=== PATIENT | female | born 1960 | race Caucasian/White ===

== ENCOUNTER 2018-10-20 22:12 | Inpatient (IN) ==
[2018-10-20] MEDS ORDERED: Aspirin 81 MG TAB.CHEW PO ONE (22:38)
[2018-10-20] MEDS ORDERED: *HR* Ticagrelor 90 MG TABLET PO ONE (22:38)
[2018-10-20] MEDS ORDERED: Aspirin 81 MG TAB.CHEW ONE (22:39)
[2018-10-20] MEDS ORDERED: *HR* Heparin 5,000 UNIT/ML VIAL ONE (22:39)
[2018-10-20] MEDS ORDERED: *HR* Ticagrelor 90 MG TABLET ONE (22:40)
[2018-10-20] MEDS ORDERED: 0.9 % Sodium Chloride 1,000 ML ONE ×3 (22:40→23:05)
[2018-10-20] MEDS ORDERED: *HR* Heparin 5,000 UNIT/ML VIAL IVP ONE (22:43)
--- NOTE | 2018-10-20 22:45 | Emergency Department Note ---
Disposition Clinical Impression: STEMI (ST elevation myocardial infarction) Qualifiers: Involved coronary artery: right coronary artery Qualified Code(s): I21.11 - ST elevation (STEMI) myocardial infarction involving right coronary artery Disposition: Admitted As Inpatient Time of Disposition: 23:00 General Adult HPI - General Chief complaint: ED Chest Pain Stated complaint: CP/LEFT SIDED ARM PAIN/N/V Time Seen by Provider: 10/20/18 22:22 Source: patient Limitations: no limitations Nursing Notes Reviewed: Yes Vital Signs Reviewed: Yes - History of Present Illness Pain Scale: 4 - Related Data Home Medications Medication Instructions Recorded Confirmed No Known Home Drugs 10/20/18 10/20/18 Allergies Allergy/AdvReac Type Severity Reaction Status Date / Time No Known Allergies Allergy Verified 10/20/18 22:40 Past Medical History - Past Medical History Medical history: Reports: no medical history Psychiatric history: Reports: no psych history - Social History Smoking Status: Former smoker Smokeless Tobacco Status: No Alcohol use: Reports: none Drug use: Reports: marijuana Physical Exam - General Limitations: no limitations General appearance: alert Course Vital Signs Temperature 97.9 F 10/20/18 22:18 Pulse Rate 87 10/20/18 22:18 Respiratory Rate 20 10/20/18 22:18 Blood Pressure 201/98 10/20/18 22:18 O2 Sat by Pulse Oximetry 99 10/20/18 22:18 Temperature 98.2 F 10/20/18 23:15 Pulse Rate 84 10/20/18 23:16 Respiratory Rate 20 10/20/18 23:16 Blood Pressure 183/94 10/20/18 23:16 O2 Sat by Pulse Oximetry 100 10/20/18 23:16 Oxygen Delivery Oxygen Delivery Nasal Cannula Medical Decision Making - Lab Data Result diagrams: 10/20/18 22:42 10/20/18 22:42 Lab Results 10/20/18 10/20/18 10/20/18 Range/Units 22:42 22:42 22:42 WBC 10.1 (4.3-11.1) K/mcL RBC 4.19 (3.82-4.97) M/mcL Hgb 13.1 (11.5-15.4) g/dL Hct 38.4 (35.3-44.9) % MCV 91.6 (83.0-100.0) fL MCH 31.3 (28.0-33.3) pg MCHC 34.1 (31.6-35.5) g/dL RDW 13.6 (11.5-14.5) % Plt Count 186 (140-400) K/mcL MPV 9.3 L (9.4-12.4) fL Immature Gran % 0.6 (0-4) % Seg Neutrophils % 73.6 % Lymphocytes % 20.2 % Monocytes % 4.7 % Eosinophils % 0.6 % Basophils % 0.3 % Neutrophils # 7.5 (1.6-8.9) K/mcL Lymphocytes # 2.0 (0.6-4.6) K/mcL Monocytes # 0.5 (0.0-1.3) K/mcL Eosinophils # 0.1 (0.0-0.6) K/mcL Basophils # 0.0 (0.0-0.2) K/mcL PT 10.8 (9.4-12.1) Seconds INR 1.0 APTT 30.8 (26.0-36.0) Seconds Sodium 137 (136-145) mEq/L Potassium 4.0 (3.5-5.1) mEq/L Chloride 105 (98-107) mEq/L Carbon Dioxide 21 L (23-29) mEq/L BUN 15 (6-20) mg/dL Creatinine 1.14 (0.60-1.20) mg/dL Est GFR ( Amer) 60 (> 60) Est GFR (Non-Af Amer) 49 L (> 60) BUN/Creatinine Ratio 13 (6-26) Glucose 178 H (70-105) mg/dL Calculated Osmolality 289 (280-300) Calcium 9.4 (8.6-10.3) mg/dL Magnesium 1.7 (1.6-2.6) mg/dL Troponin I 0.09 H* (< 0.04) ng/mL Critical Care Time Critical Care Time: Yes Total Critical Care Time: 30 Attestation: Critical care performed: Time is exclusive of separately billable procedures. Time includes: direct patient care, patient reassessment, coordination of patient care, interpretation of data (laboratory data, radiology data, and respiratory data), review of patient's medical records, medical consultation and documentation of patient care. Procedures included in critical care time: Procedures excluded from critical care time: Attestation Statement - Attestation Attestation: I examined this patient and my medical decision-making was reviewed with the Resident Physician. I agree with the documented findings, disposition and treatment plan as described except to the extent set forth below. Patient to the ED with chest pain. Left-sided nonradiating. Started at 6:30 tonight when she was in an argument with a coworker. No cardiac history. She has not seen a physician in 10 years. On exam she is tearful but in no distress. Heart regular rate and rhythm and lungs are clear. She is hypertensive with a systolic blood pressure of 200. Plan. Initial EKG shows ST elevation in the inferior leads with lateral ST depressions. This is consistent with an ST elevation GA. STEMI alert was called. Aspirin, heparin, belligerent or ordered. Case was discussed with on-call interventionalist. Patient to [facility].
--- NOTE | 2018-10-20 22:51 | Emergency Department Note ---
Disposition Clinical Impression: STEMI (ST elevation myocardial infarction) Qualifiers: Involved coronary artery: unspecified coronary artery Qualified Code(s): I21.3 - ST elevation (STEMI) myocardial infarction of unspecified site Disposition: Admitted As Inpatient Time of Disposition: 22:55 Chest Pain HPI - General Chief Complaint: ED Chest Pain Stated Complaint: CP/LEFT SIDED ARM PAIN/N/V Time Seen by Provider: 10/20/18 22:22 Source: patient Mode of arrival: ambulatory Limitations: no limitations Vital Signs Reviewed: Yes Nursing Notes Reviewed: Yes - History of Present Illness HPI Narrative: 58F with no significant PMHx presents to the emergency department with left- sided chest pain radiating down the left arm. Patient states this started approximately 6:30 after getting in an argument with one of her coworkers. She now describes it as a left-sided pressure and difficult in catching her breath. She has never had any chest pain like this before. She states she has not seen a doctor in 10-15 years. She does not take any medications on a daily basis. She is a daily smoker. Severity scale (1-10): 4 - Related Data Home Medications Medication Instructions Recorded Confirmed No Known Home Drugs 10/20/18 10/20/18 Allergies Allergy/AdvReac Type Severity Reaction Status Date / Time No Known Allergies Allergy Verified 10/20/18 22:40 All systems ED: reviewed and negative except as stated. Review of Systems: As Per HPI Constitutional: Denies: fever, chills, weakness Cardiovascular: Reports: chest pain, dyspnea on exertion. Denies: palpitations Respiratory: Reports: dyspnea. Denies: cough, wheezes Gastrointestinal: Denies: abdominal pain, nausea, vomiting, diarrhea Genitourinary: Denies: dysuria, hematuria Musculoskeletal: Denies: back pain, neck pain Integumentary: Denies: rash Neurological: Denies: headache Endocrine: Denies: fatigue Chest Pain PMH - Past Medical History Medical history: Reports: no medical history Psychiatric history: Reports: no psych history - Social History Smoking Status: Former smoker Alcohol use: Reports: none Drug use: Reports: marijuana Physical Exam - General Limitations: no limitations General appearance: alert, anxious, in distress (mild distress) - Head Head exam: atraumatic, normocephalic - Eye Eye exam: Present: normal appearance, PERRL, EOMI - ENT ENT exam: normal exam, normal oropharynx - Chest Chest inspection: Present: normal inspection. Absent: tenderness, rash - Respiratory Respiratory exam: Present: normal lung sounds bilaterally. Absent: wheezes - Cardiovascular Cardiovascular exam: Present: regular rate, normal rhythm - Abdominal Exam Abdominal exam: Present: soft, Non-Tender. Absent: distention, guarding, rebound, rigidity - Extremities Exam Extremities exam: Present: normal inspection. Absent: tenderness, pedal edema - Neurological Exam Neurological exam: Present: alert, oriented X3 - Psychiatric Psychiatric exam: Present: anxious - Skin Skin exam: Present: warm, dry, intact Course Vital Signs Temperature 97.9 F 10/20/18 22:18 Pulse Rate 87 10/20/18 22:18 Respiratory Rate 20 10/20/18 22:18 Blood Pressure 201/98 10/20/18 22:18 O2 Sat by Pulse Oximetry 99 10/20/18 22:18 Temperature 97.9 F 10/20/18 22:28 Pulse Rate 87 10/20/18 22:28 Respiratory Rate 20 10/20/18 22:28 Blood Pressure 201/98 10/20/18 22:28 O2 Sat by Pulse Oximetry 99 10/20/18 22:28 Oxygen Delivery Oxygen Delivery Room Air Chest Pain - MDM Narrative Medical decision making narrative: Patient presents with left-sided chest pain radiating down her left arm. Cardiac workup was ordered for the patient. EKG was obtained at 2230 and at 1 a STEMI alert was called. Spoke with Dr. Charlton at 2233 who is made aware of this patient and will be taking the patient to [facility]. Aspirin, [place] and heparin have been ordered for this patient. Labs were already drawn and are pending at this time. Patient will be transported to the catheter lab in hemodynamically stable condition. - Medical Records Medical records reviewed: Yes I reviewed the patient's medical records. - Lab Data Lab results reviewed: Yes I reviewed the patient's lab results. - EKG Data EKG attestation: Yes I reviewed and interpreted this EKG. EKG results narrative: EKG obtained at 2230 on 10/20/2018 Heart rate 81 beats or minute, AK interval 179, QRS duration 97, QT 368, QTC 428 Sinus rhythm with acute inferior wall ST segment elevation. ST segment depressions in leads 1, aVL, V5 and V6. No old EKG for comparison at this time.
[2018-10-20 22:57] LABS: Basophils % 0.3 %; Eosinophils # 0.1 K/mcL (0.0-0.6); Eosinophils % 0.6 %; Hematocrit 38.4 % (35.3-44.9); Hemoglobin 13.1 g/dL (11.5-15.4); Immature Granulocytes % 0.6 % (0-4); Lymphocytes % 20.2 %; Mean Corpuscular HGB Conc 34.1 g/dL (31.6-35.5); Mean Corpuscular Hemoglobin 31.3 pg (28.0-33.3); Mean Corpuscular Volume 91.6 fL (83.0-100.0); Mean Platelet Volume 9.3 fL (9.4-12.4); Monocytes # 0.5 K/mcL (0.0-1.3); Monocytes % 4.7 %; Neutrophils # 7.5 K/mcL (1.6-8.9); Platelet Count 186 K/mcL (140-400); Red Blood Count 4.19 M/mcL (3.82-4.97); Red Cell Distribution Width 13.6 % (11.5-14.5); Segmented Neutrophils % 73.6 %; White Blood Count 10.1 K/mcL (4.3-11.1)
[2018-10-20] MEDS ORDERED: *HR* Heparin 10,000 UNIT/10 ML VIAL ONE (23:02)
[2018-10-20] MEDS ORDERED: Nitroglycerin 1,000 MCG/10 ML VIAL IV ONE (23:02)
[2018-10-20] MEDS ORDERED: Heparin 1,000 UNITS/500 mL 500 ML ONE (23:02)
[2018-10-20] MEDS ORDERED: Iopamidol 125 ML INFUS..BTL ONE (23:05)
[2018-10-20 23:15] LABS: Calcium 9.4 mg/dL (8.6-10.3); Magnesium 1.7 mg/dL (1.6-2.6)
--- NOTE | 2018-10-20 23:15 | Cardiology History & Physical ---
Date of Encounter: 10/20/18 Time of Encounter: 23:13 Assessment and Plan (1) STEMI (ST elevation myocardial infarction) Current Visit: Yes Status: Acute The assessment and plan as outlined above was discussed with the patient and/or family members who expressed understanding and agreement. All questions were answered. 58-year-old female with inferior ST elevation myocardial infarction on EKG and concerning chest pain associated starting at 6 PM ongoing currently at 4 out of 10. Risks benefits and alternatives of a LHC were discussed with the patient and she agrees to proceed. Full H&P was difficult to obtain due to the emergent nature of presentation and emergent need for LHC Qualifiers: Involved coronary artery: right coronary artery Qualified Code(s): I21.11 - ST elevation (STEMI) myocardial infarction involving right coronary artery History of Present Illness Chief complaint: chest pain HPI: Ms. Sanford is a 58 year old female no significant past history active smoker presents to the emergency department with left pectoral type chest pain radiated down her left upper extremity started approximately 6 PM at 9 out of 10 intensity currently 4 out of 10 on arrival to the emergency department. EKG shows inferior ST elevations concerning for a myocardial infarction. Patient was administered ACS medications in the emergency department. Risks benefits and alternatives of and LHC was discussed with the patient she agrees to proceed Past Med Surg Social Fam HX - Past Medical History Medical history: no medical history Psychiatric history: no psych history - Past Surgical History Additional surgical history: cyst removal at 24 - Social History Smoking Status: Former smoker Smokeless Tobacco Status: No Alcohol use: none Drug use: marijuana Medications and Allergies No Known Home Drugs 10/20/18 [History] Allergy/AdvReac Type Severity Reaction Status Date / Time No Known Allergies Allergy Verified 10/20/18 22:40 All Systems Review: The remainder of the systems were reviewed and are negative Physical Examination Vital Signs, Last 4 Hours Temp Pulse Resp BP Pulse Ox 10/20/18 23:11 79 18 183/94 100 10/20/18 23:09 98.1 F 82 18 189/96 99 10/20/18 23:00 83 24 203/99 100 10/20/18 22:58 84 20 201/91 100 10/20/18 22:40 85 24 205/90 100 10/20/18 22:28 97.9 F 87 20 201/98 99 10/20/18 22:18 97.9 F 87 20 201/98 99 General: Conversant, No Apparent Distress HEENT: Atraumatic, Normocephaly, Mucus Membranes Moist Neck: No JVD, Normal carotid pulses Cardiac: Reg Rate and Rhythm, Normal S1 and S2, No Murmur Lungs: Normal Breath Sounds, No Wheeze, Rales, Rhonchi Neuro: Alert and responsive, No focal deficits noted Abdomen: Soft, Non-Tender Skin: No rashes noted on visualized skin Musculoskeletal: No Chest Wall Tenderness Extremities: No Clubbing, No Cyanosis, No Edema, Normal Pulses Results 10/20/18 22:42 Lab Results 10/20/18 22:42 WBC 10.1 Hgb 13.1 Hct 38.4 Plt Count 186
[2018-10-20 23:19] LABS: Prothrombin Time 10.8 Seconds (9.4-12.1)
[2018-10-20 23:22] LABS: Activated Partial Thrombo Time 30.8 Seconds (26.0-36.0)
[2018-10-20 23:23] LABS: Troponin I 0.09 ng/mL (< 0.04)
--- NOTE | 2018-10-20 23:23 | Pre-Sedation Evaluation ---
Pre-sedation evaluation - Pre-sedation checklist Date of procedure: 10/20/18 Procedure: LHC Recent Vitals: Last Vital Signs Temp 98.2 F 10/20/18 23:15 Pulse 84 10/20/18 23:16 Resp 20 10/20/18 23:16 BP 183/94 10/20/18 23:16 Pulse Ox 100 10/20/18 23:16 ASA Classification *see protocol: CLASS II-Mild systemic disease Cardiac Registry (Cardio Only) - Functional Capacity Functional Capacity: < 4 METS - Clincal Frailty Scale Clinical Frailty Scale: Vulnerable
[2018-10-20] MEDS ORDERED: *HR* FentaNYL (PF) 100 MCG/2 ML VIAL ONE (23:24)
[2018-10-20] MEDS ORDERED: *HR* Midazolam HCl 2 MG/2 ML VIAL ONE (23:24)
[2018-10-20] MEDS ORDERED: Tirofiban 12.5 MG/250ML 12.5 MG/250 ML BAG ONE (23:25)
[2018-10-21] MEDS ORDERED: Ondansetron 4 MG/2 ML VIAL ONE (00:09)
[2018-10-21] MEDS ORDERED: Iopamidol 125 ML INFUS..BTL ONE (00:14)
[2018-10-21] MEDS ORDERED: 0.9 % Sodium Chloride 1,000 ML ONE (00:19)
[2018-10-21] MEDS ORDERED: Tirofiban 12.5 MG/250ML 12.5 MG/250 ML BAG IVC SCH (00:45)
[2018-10-21] MEDS ORDERED: *HR* Atropine Sulfate 1 MG/10 ML SYRINGE ONE (00:52)
--- NOTE | 2018-10-21 00:54 | Invasive Diagnostic Lab Proc ---
Name: Alesisa Sanford Date of Study: 10/20/2018 Date: 1960 Ht: 68.1in Medical Record#: [id number] Age: 58 Wt: 171.96lb Gender: Female BSA: 1.92 Order #: [id number] BMI: 26.06 Physicians Procedure Physician: Holly Charlton MD Referring MD: Referring MD: Staff Name Position Time In SuebookerYasmin veliz RN Monitor 11:02 PM Eliane Martinez RN Condominium Association Manager 11:03 PM Jumaan Oates RT (R) Scrub 11:03 PM Procedures Performed Procedure L HRT ARTERY/VENTRICLE ANGIO PRQ CARD REVASC NC 1 VSL Pre-Procedure Checklist Pt not NPO for procedure and MD aware. Plan of Care Patient will tolerate the procedure without complications. Adequate level of comfort will be maintained. Hemodynamics will remain stable Patient will recover from procedure without complications. Respiratory function will be maintained. Cardiac rhythm will remain stable. Patient temperature will be maintained. Patient and/or family have verbalized understanding of the procedure. Patient Education Intravenous Access Time IV Size Location DC'd Fluid/Drip Rate Units RN 11:02 PM 20g 1 1/4" Patent On Arrival Rt Antecubital 11:02 PM 20g 1 1/4" Patent On Arrival Lt Arm Allergies No Known Allergies Vital Signs Time BP (mmHg) HR (bpm) O2 Sat. RR (bpm) LOC 11:26 PM / % 5 = Fully awake and oriented or at pre-proc level 11:26 PM / % 4 = Oriented but drowsy 11:41 PM / % 4 = Oriented but drowsy 11:56 PM / % 4 = Oriented but drowsy 12:11 AM / % 4 = Oriented but drowsy 11:25 PM 198 / 108 151 100 % 18 11:29 PM 182 / 97 80 100 % 15 11:34 PM 184 / 89 77 100 % 14 11:39 PM 185 / 91 83 100 % 10 11:44 PM 177 / 97 88 100 % 20 11:49 PM 181 / 95 78 100 % 12 11:54 PM 175 / 92 82 100 % 19 11:59 PM 175 / 94 81 100 % 12 12:04 AM 100 / 56 60 100 % 13 12:13 AM 171 / 79 98 99 % 14 12:17 AM 104 / 60 83 97 % 14 12:19 AM 98 / 57 78 98 % 15 12:22 AM 99 / 60 78 100 % 11 12:27 AM 100 / 53 74 99 % 13 12:32 AM 90 / 53 77 100 % 12 12:37 AM 97 / 59 81 96 % 20 Procedural Medications Time Medication Dose Units Method Given By 11:26 PM Oxygen 2 L/min nasal cannula Eliane Martinez RN 11:26 PM Versed 1 mg Intravenous Rockfish, Eliane MCBRIDE 11:26 PM Fentanyl 25 mcg Intravenous Rockfish, Eliane MCBRIDE 11:27 PM Lidocaine 2% 20 ml Subcutaneous Holly Charlton MD 11:33 PM Aggrastat Bolus: 37.5 ml Intravenous Juan, Eliane MCBRIDE 11:33 PM Aggrastat 12.5mg/250ml 13.5 ml/hr Intravenous Rockfish, Eliane MCBRIDE 11:38 PM Versed 0.5 mg Intravenous Juan, Eliane MCBRIDE 11:38 PM Fentanyl 25 mcg Intravenous Juan, Eliane MCBRIDE 12:01 AM Atropine 0.25 mg Intravenous Rockfish, Eliane MCBRIDE 12:04 AM Atropine 0.25 mg Intravenous Juan, Eliane MCBRIDE 12:05 AM Epinephrine 0.25 mg Intravenous Juan, Eliane MCBRIDE 12:10 AM Zofran 4 mg Intravenous Juan, Eliane MCBRIDE 12:27 AM Nitroglycerin 50 mcg Intracoronary Holly Charlton MD 12:35 AM Heparin 1500 units Intravenous Juan, Eliane MCBRIDE Saqib Score Preprocedure Postprocedure Activity 2- Moves 4 extremities sustained head lift Activity 2- Moves 4 extremities sustained head lift Circulation 2- SBP +/= 20 points of pre-anesthetic level Circulation 2- SBP +/= 20 points of pre-anesthetic level Consciousness 2- Awake and alert oriented x 3 Consciousness 2- Awake and alert oriented x 3 O2 Saturation 2- Able to maintain O2 satruation of 92% on room air O2 Saturation 2- Able to maintain O2 satruation of 92% on room air Respiratory 2- Able to deep breathe and cough well Respiratory 2- Able to deep breathe and cough well Total Score 10 Total Score 10 Contrast Agent: Isovue Diagnostic Contrast: 249 ml Total Contrast: 249 ml Fluoro Dose: 155 mGy Activated Clotting Time Time Seconds to Clot 12:35 AM 169 Procedure Log Time Note Enter By 11:03 PM Yasmin Murray RN Position: Monitor Time in: 23:02 evaristo 11:03 PM Eliane Martinez RN Position: Condominium Association Manager Time in: :[facility] 11: PM Jumana Oates RT (R) Position: Scrub Time in: :[facility] 11: PM Patient charges- Angio tray pack, Navilyst 3mm J, Pulse Oximetry and ACIST tubing and transducer 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 11: PM CathStat : PM Vitals capture started with the following parameters, Patient=Adult, Interval=5 min, Initial Cpdcploi=261 mmHg, Deflation Rate=3 mmHg, Cuff placed on Right Arm 11: PM Physician arrived 23:[facility] 11: PM NG=438 bpm, JQGT=551/108 mmhg, HiF5=826.0 %, Resp=18 B/min 11: PM Meet and greet completed [facility] : PM Sign in performed according to hospital policy. Informed consent was obtained. [facility] : PM Procedure start :[facility] : PM Hair removed from procedure site in procedure lab using clippers. Bilateral groin prepped with Chloraprep by Yasmin Murray RN, then patient was draped. Skin intact. [facility] PM Time: :25 Patient comfortable and pain free: Yes [facility] : PM Time: :26LOC: 5 = Fully awake and oriented or at pre-proc level [facility] PM Time: : Oxygen on at 2 L/min per nasal cannula by Eliane Martinez RN maeve PM Time: : Versed 1 mg Intravenous Given by Eliane Martinez RN PM Time: : Fentanyl 25 mcg Intravenous Given by Eliane Martinez RN : PM Time out was performed according to hospital policy. Conscious sedation and anesthesia was achieved (see medication log with in this report above) [facility] : PM Time: :27 20 ml Lidocaine 2% to right groin Subcutaneous Given by Holly Charlton MD maeve : PM Micro-Introducer Kit utilized for sheath placement [facility] 11:28 PM Pressure channel 1 zero failed. 11:28 PM Recorded ECG: HR=80 Condition=Condition 1 11:29 PM HR=80 bpm, WEKP=529/97 mmhg, BmL5=937.0 %, Resp=15 B/min 11:30 PM Pressure channel 1 zeroed. 11:30 PM Access obtained by percutaneous puncture. 6Fr 10cm Terumo [place] sheath placed in right Femoral artery. [id number] tsoummers 11:31 PM Inflation device was opened. tsoummers 11:31 PM 6Fr JR 4 Runway guide catheter was used to cannulate the PCI vessel successfully. reused? No tsoummers 11:32 PM RCA angiography performed in multiple views. tsoummers 11:33 PM Recorded Pressure: Ao, HR=92, Condition=Condition 1 (Aorta) Ao 190/94/134 11:33 PM .014 [employer] [place] 190cm guide wire across target lesion- unsuccessful. reused? No tsoummers 11:33 PM Time: 23:33 Aggrastat Bolus: 37.5 ml Intravenous Given by Eliane Martinez RN Post pump [facility] 11:33 PM Time: 23:33 Aggrastat 12.5mg/250ml 13.5 ml/hr Intravenous Given by Eliane Martinez RN Post pump [facility] 11:34 PM Lesion found in Mid RCA. Pre Stenosis: 100 Pre PELON Flow: 0: No Flow/No perfusion tsoummers 11:34 PM Right Coronary, Right Posterior Descending Arteries with Right Posterolateral and Acute Marginal branches with 100 % stenosis. If graft is supplying this area, 0 % stenosis tsmmers 11:34 PM Recorded Pressure: Ao, HR=77, Condition=Condition 1 (Aorta) Ao 162/74/110 11:34 PM HR=77 bpm, WFQO=992/89 mmhg, KkT4=668.0 %, Resp=14 B/min 11:37 PM Recorded Pressure: Ao, HR=86, Condition=Condition 1 (Aorta) Ao 188/89/131 11:38 PM Time: 23:38 Versed 0.5 mg Intravenous Given by Eliane Martinez RN 11:38 PM Time: 23:38 Fentanyl 25 mcg Intravenous Given by Eliane Martinez RN 11:39 PM HR=83 bpm, URNH=389/91 mmhg, KgH0=298.0 %, Resp=10 B/min 11:40 PM 2.0 mm x 20 mm Emerge Monorail balloon across target lesion- successful. reused? No tsoummers 11:41 PM Time: 23:26LOC: 4 = Oriented but drowsy tsoummers 11:41 PM Time: 23:26 Patient comfortable and pain free: Yes tsoummers 11:44 PM Balloon catheter removed intact. Did not inflate tsoummers 11:44 PM HR=88 bpm, CRMA=324/97 mmhg, RuK6=036.0 %, Resp=20 B/min 11:44 PM Guide wire removed intact. tsoummers 11:45 PM .014 [employer] 50 190cm guide wire across target lesion- successful. reused? No tsoummers 11:49 PM HR=78 bpm, EXQT=069/95 mmhg, OdD2=730.0 %, Resp=12 B/min 11:51 PM Guide wire removed intact. tsoummers 11:51 PM Guide catheter removed intact. tsoummers 11:51 PM 5Fr FL 4 catheter inserted over the wire [facility] tsoummers 11:52 PM LCA angiography performed in multiple views. tsoummers 11:53 PM Recorded Pressure: Ao, HR=82, Condition=Condition 1 (Aorta) Ao 160/85/118 11:54 PM Catheter removed tsoummers 11:54 PM HR=82 bpm, NQVX=067/92 mmhg, CcX5=803.0 %, Resp=19 B/min 11:55 PM JR4 guide reinserted tsoummers 11:56 PM Time: 23:41 Patient comfortable and pain free: Yes tsoummers 11:56 PM Time: 23:41LOC: 4 = Oriented but drowsy tsoummers 11:56 PM pilot50 wire reinserted tsoummers 11:57 PM 2.0x 20 mm balloon reinserted tsoummers 11:58 PM Balloon inflated @ 6 mylene for 9 seconds tsoummers 11:59 PM Balloon inflated @ 6 mylene for 5 seconds tsoummers 11:59 PM HR=81 bpm, DCYI=655/94 mmhg, LsP9=548.0 %, Resp=12 B/min 12:00 AM Recorded Pressure: Ao, HR=64, Condition=Condition 1 (Aorta) Ao 135/56/85 12:02 AM Time: 00:01 Atropine 0.25 mg Intravenous Given by Eliane Martinez RN 12:04 AM Time: 00:04 Atropine 0.25 mg Intravenous Given by Eliane Martinez RN 12:04 AM HR=60 bpm, XHCB=366/56 mmhg, SeN6=024.0 %, Resp=13 B/min 12:05 AM Recorded ECG: HR=78 Condition=Condition 1 12:06 AM Time: 00:05 Epinephrine 0.25 mg Intravenous Given by Eliane Martinez RN 12:07 AM Balloon inflated @ 6 mylene for 5 seconds tsoummkeren 12:07 AM Balloon inflated @ 6 mylene for 6 seconds tsoummkeren 12:07 AM Balloon inflated @ 6 mylene for 5 [facility] AM Balloon catheter removed intact. tsoummers 12:11 AM Time: 00:10 Zofran 4 mg Intravenous Given by Eliane Martinez RN 12:11 AM Vitals capture stopped. 12:11 AM Vitals capture started with the following parameters, Patient=Adult, Interval=5 min, Initial Xbngowze=719 mmHg, Deflation Rate=3 mmHg, Cuff placed on Right Arm 12:11 AM Time: 23:56LOC: 4 = [facility]ed but drowsy [facility] AM Time: 23:56 Patient comfortable and pain free: Yes tsoummers 12:11 AM Recorded ECG: VL=984 Condition=Condition 1 12:11 AM Recorded Pressure: Ao, BG=291, Condition=Condition 1 (Aorta) Ao 175/88/126 12:13 AM HR=98 bpm, OYVJ=199/79 mmhg, SpO2=99.0 %, Resp=14 B/min 12:16 AM Guide wire removed intact. tsoummers 12:16 AM Guide catheter removed intact. tsoummers 12:16 AM 6Fr JR 4 SH Runway guide catheter was used to cannulate the PCI vessel successfully. reused? No tsoummers 12:16 AM pilot teacher 50 wire reinserted tsoummers 12:17 AM HR=83 bpm, WDXZ=677/60 mmhg, SpO2=97.0 %, Resp=14 B/min 12:18 AM NIBP STAT measurement started. 12:18 AM Recorded Pressure: Ao, HR=80, Condition=Condition 1 (Aorta) Ao 73/41/56 12:19 AM HR=78 bpm, NIBP=98/57 mmhg, SpO2=98.0 %, Resp=15 B/min 12:21 AM 2.25mm x 12mm Synergy drug-eluting stent across target lesion- successful Lot #[id number] tsoummers 12:22 AM HR=78 bpm, NIBP=99/60 mmhg, YoZ1=482.0 %, Resp=11 B/min 12:22 AM Stent deployed @ 9 mylene for 9 seconds tsoummers 12:23 AM Stent balloon reinflated @ 11 mylene for 9 seconds tsoummers 12:23 AM Stent balloon reinflated @ 6 mylene for 5 seconds tsoummers 12:23 AM Stent balloon reinflated @ 6 mylene for 4 seconds tsoummers 12:23 AM Stent delivery system removed intact. tsoummers 12:24 AM 2.25mm x 16mm Synergy drug-eluting stent across target lesion- successful Lot #[id number] tsoummers 12:25 AM Stent deployed @ 11 mylene for 12 seconds tsoummers 12:26 AM Stent balloon reinflated @ 16 mylene for 8 seconds tsoummers 12:26 AM Stent balloon reinflated @ 14 mylene for 5 seconds tsoummers 12:26 AM Time: 00:11 Patient comfortable and pain free: Yes tsoummers 12:26 AM Time: 00:11LOC: 4 = Oriented but drowsy tsoummers 12:26 AM Stent delivery system removed intact. tsoummers 12:27 AM HR=74 bpm, AMRB=950/53 mmhg, SpO2=99.0 %, Resp=13 B/min 12:27 AM Time: 00:27 Nitroglycerin 50 mcg Intracoronary Given by Holly Charlton MDkeren 12:28 AM Coronary Dominance: right tsoummers 12:30 AM Guide wire removed intact. tsoummers 12:30 AM Guide catheter removed intact. tsoummers 12:30 AM 5Fr Pigtail catheter inserted over the wire [facility] tsoummers 12:31 AM Catheter crossed the aortic valve and was selectively placed in the left ventricle. Pressures recorded on pullback for left heart catheterization. tsoummers 12:31 AM Bolus angiogram of left Ventricle complete: 10 ml/sec for a total of 20 mls tsoummers 12:32 AM Recorded Pressure: LV, HR=77, Condition=Condition 1 (Left Ventricle) LV 88/6/14 12:32 AM HR=77 bpm, NIBP=90/53 mmhg, SwT8=742.0 %, Resp=12 B/min 12:33 AM [facility]ter [facility] 12:33 AM Recorded Pressure: LV, Ao, HR=78, Condition=Condition 1 (Left Ventricle) LV 76/21/23, (Aorta) Ao 80/54/66 12:33 AM Bolus angiogram of right Femoral complete: 2 ml/sec for a total of [address] [facility] 12:34 AM Procedure completed at 00:34 10/21/2018 [facility] 12:34 AM Did you address PELON flow and Dominance? YesCoronary Dominance: right [facility] 12:35 AM Sign out completed: Radiation Dose 1128.71 mGy, 155 Gy/cm2 Fluoro Time: 28.7 Isovue 370 - 200ml contrast 249 ml given by Holly Charlton MD. Complications: None. 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 Sedation minutes 70. Cardiac Rehab Consult needed: Yes. Confirmed administered medications: Yes [facility] 12:35 AM Time: 00:35 Heparin 1500 units Intravenous Given by Eliane Martinez RN [facility] 12:35 AM At 00:35 the ACT was 169 seconds. [facility] 12:36 AM Estimated Blood Loss: less than 20cc [facility] 12:36 AM Post ECG NSR [facility] 12:37 AM Post Blood Pressure 90/[facility] 12:37 AM Information taught Cardiac Cath, PCI, and Angioseal [facility] 12:37 AM Education needs Procedure, Plan of Care, and Responsibilities of Patient in Care [facility] 12:37 AM Arterial sheath pulled, Angio-seal closure device used and was Successful [id number] S/N. [facility] 12:37 AM HR=81 bpm, NIBP=97/59 mmhg, SpO2=96.0 %, Resp=20 B/min 12:37 AM Education needs Procedure, Plan of Care, and Responsibilities of Patient in [facility] 12:37 AM Learning barriers :None [facility] 12:37 AM Education Methods Verbal [facility] 12:37 AM Education evaluation Able to repeat information [facility] 12:37 AM Site status No bleeding/ No Hematoma - Rt Groin as reported by Jumana Oates RT (R) at 00:37 tsoummers 12:[address] [facility] 12:37 AM Plavix, Effient or Brilinta given Yes in ED [employer] tsoummers 12:37 AM Family placed in consult room. tsoummers 12:45 AM Lesion found in Distal RCA. Pre Stenosis: 50 Pre PELON Flow: tsoummers 12:45 AM Lesion found in Distal LMCA. Pre Stenosis: 20 Pre PELON Flow: tsoummers 12:46 AM Lesion found in Mid LAD. Pre Stenosis: 60 Pre PELON Flow: tsoummers 12:46 AM Lesion found in Distal Circumflex. Pre Stenosis: 50 Pre PELON Flow: tsoummers 12:46 AM Lesion found in 1st Marginal. Pre Stenosis: 60 Pre PELON Flow: tsoummers 12:46 AM Left Main Coronary Artery with 20% stenosis tsoummers 12:46 AM Mid/Distal Left Anterior Descending Coronary Artery and diagonal branches with 60% stenosis. If graft is supplying this area, 0 % stenosis tsoummers 12:46 AM Circumflex, Obtuse Marginal, Left Posterior Descending, and Left Posterolateral Coronary Arteries with 50 % stenosis. If graft is supplying this area, 0 % stenosis tsmmers 12:46 AM Report given to Ruth MCBRIDE Pt taken to ICU Room #5. 00:46 tsoummers 12:46 AM Patient out of room: 00:46 [facility] Complications Complication None Hemodynamics Pressures Site Systolic/A Wave Diastolic/V Wave Mean AO 190 94 134 AO 162 74 110 AO 188 89 131 AO 160 85 118 AO 135 56 85 AO 175 88 126 AO 73 41 56 LV 88 6 14 LV 76 21 23 AO 80 54 66 Post Procedure Information Blood Pressure: 90/53 mmHg Rhythm: NSR Post procedural instructions were given Closure Device Time Device Success/Fail 10/21/2018 12:37:00 AM Angio-Seal VIP Successful Site Checks Time Location Status Staff Sheath In? Note 12:37 AM Rt Groin No bleeding/ No Hematoma Jumana Oates RT (R) Pulses Updated by Yasmin Murray RN on 10/21/2018 12:48:43 AM electronically signed on 10/21/2018 12:49:05 AM with status of Final
[2018-10-21 03:37] LABS: Basophils % 0.3 %; Eosinophils % 0.2 %; Hematocrit 37.4 % (35.3-44.9); Hemoglobin 12.5 g/dL (11.5-15.4); Immature Granulocytes % 0.4 % (0-4); Lymphocytes # 1.7 K/mcL (0.6-4.6); Lymphocytes % 16.3 %; Mean Corpuscular HGB Conc 33.4 g/dL (31.6-35.5); Mean Corpuscular Hemoglobin 30.7 pg (28.0-33.3); Mean Corpuscular Volume 91.9 fL (83.0-100.0); Mean Platelet Volume 9.9 fL (9.4-12.4); Monocytes # 0.4 K/mcL (0.0-1.3); Monocytes % 4.1 %; Neutrophils # 8.2 K/mcL (1.6-8.9); Platelet Count 208 K/mcL (140-400); Red Blood Count 4.07 M/mcL (3.82-4.97); Red Cell Distribution Width 13.7 % (11.5-14.5); Segmented Neutrophils % 78.7 %; White Blood Count 10.4 K/mcL (4.3-11.1)
[2018-10-21 03:52] LABS: BUN/Creatinine Ratio 14 (6-26); Blood Urea Nitrogen 14 mg/dL (6-20); Calcium 8.6 mg/dL (8.6-10.3); Carbon Dioxide 19 mEq/L (23-29); Chloride 107 mEq/L (98-107); Glucose 156 mg/dL (70-105); Osmolality,Calculated 286 (280-300); Potassium 4.2 mEq/L (3.5-5.1); Sodium 136 mEq/L (136-145); eGFR For African Americans > 60 (> 60); eGFR For Non-African Americans 57 (> 60)
[2018-10-21] MEDS ORDERED: *HR* EPINEPHrine 1 MG/10 ML SYRINGE IVP ONE (07:51)
[2018-10-21] MEDS: Aspirin 81 MG TAB.CHEW PO SCH (07:56)
[2018-10-21] MEDS: *HR* Ticagrelor 90 MG TABLET PO SCH ×2 (07:57→20:44)
--- NOTE | 2018-10-21 11:17 | Cardiology Progress Note ---
<Jacques Barrientos Mark - Last Filed: 10/21/18 12:18> Date of Encounter: 10/21/18 Time of Encounter: 11:15 Assessment and Plan (1) STEMI (ST elevation myocardial infarction) Current Visit: Yes Status: Acute 1. STEMI on EKG associated with chest pain last evening 05/23; Troponin 0.09. 2. S/P [facility] report pending; Denies chest pain, SOB, flank pain, n/t. 3. Right groin access site dressing removed. There is no hematoma present with minimal echymosis. Pt. education s/p procedure given and pt. understands. 4. On DAPT, Brilinta, ASA, continue. Will add statin. Will hold ACEI and BB at this time d/t hypotension; recommend add when able. H/H and renal fx stable. 5. Will order fasting lipids, LFTs. 6. Echo, EKG ordered. Will review and recommend further recs. 7. Will add troponin for tonight and a.m. to see trend for baseline further recs . 7. Discussed and reviewed with Dr. Charlton and the patient. Consider transfer to floor tomorrow. Qualifiers: Involved coronary artery: right coronary artery Qualified Code(s): I21.11 - ST elevation (STEMI) myocardial infarction involving right coronary artery Discussion w patient/family: The assessment and plan as outlined above was discussed with the patient and/or family members who expressed understanding and agreement. All questions were answered. Thank you for involving us in the care of your patient. Please call with any questions. Subjective Principal diagnosis: STEMI Interval history: Denies Chest pain, SOB at rest, flank pain or tenderness. Denies N/T lower extremities. Objective Vital Signs, Last 4 Hours Pulse Resp BP Pulse Ox 10/21/18 10:00 60 19 114/49 97 10/21/18 09:00 76 20 109/51 98 10/21/18 08:00 77 17 124/54 98 General: Conversant, No Apparent Distress HEENT: Atraumatic, Normocephaly, Mucus Membranes Moist Neck: No JVD, Normal carotid pulses Cardiac: Reg Rate and Rhythm, Normal S1 and S2, No Murmur Lungs: Normal Breath Sounds, Other (exp. wheezes) Neuro: Alert and responsive, No focal deficits noted Abdomen: Soft, Non-Tender Skin: No rashes noted on visualized skin Musculoskeletal: No Chest Wall Tenderness Extremities: No Clubbing, No Cyanosis, No Edema, Normal Pulses Results 10/21/18 03:21 10/21/18 03:21 Lab Results Laboratory Tests 10/21/18 10/21/18 03:21 03:21 Hgb 12.5 Hct 37.4 Plt Count 208 BUN 14 Creatinine 1.00 Est GFR (Non-Af Amer) 57 L Selected Entries 10/21/18 11:00 Pulse Rate 77 Respiratory Rate 18 Blood Pressure 102/52 O2 Sat by Pulse Oximetry 98 Oxygen Delivery Method Room Air Selected Entries 10/21/18 05:00 10/21/18 06:00 10/21/18 07:00 Blood Pressure 114/66 105/65 109/63 10/21/18 08:00 10/21/18 09:00 10/21/18 10:00 Blood Pressure 124/54 109/51 114/49 10/21/18 11:00 Blood Pressure 102/52 - Imaging and Cardiology Echo: pending Cardiac cath: pending - EKG Interpretation EKG results cardiology: other (pending) Consult Discharge Plan - Plan Referrals: NONE,PCP [Primary Care Provider] - <Holly Charlton - Last Filed: 10/21/18 12:24> Date of Encounter: 10/21/18 Assessment and Plan (1) STEMI (ST elevation myocardial infarction) Current Visit: Yes Status: Acute I have personally performed a face to face evaluation on this patient. I have reviewed and agree with the care plan. History and Exam by me shows: Status post-PCI to mid RCA, highly tortuous RCA with collaterals received from the left. PCI was successful in the mid highly tortuous RCA with PELON-3 flow. Just fraction on LV gram while preserved echo pending. Borderline low blood pressure likely not a candidate for beta yari or [place] inhibitor at this time started/titrate as tolerated in year future Qualifiers: Involved coronary artery: right coronary artery Qualified Code(s): I21.11 - ST elevation (STEMI) myocardial infarction involving right coronary artery Discussion w patient/family: The assessment and plan as outlined above was discussed with the patient and/or family members who expressed understanding and agreement. All questions were answered. Thank you for involving us in the care of your patient. Please call with any questions. Objective Vital Signs, Last 4 Hours Temp Pulse Resp BP Pulse Ox 09/08/19 11:27 98.3 F 10/21/18 11:00 77 18 102/52 98 10/21/18 10:00 60 19 114/49 97 10/21/18 09:00 76 20 109/51 98 Results 10/21/18 03:21 10/21/18 03:21 Lab Results 10/20/18 10/20/18 10/20/18 22:42 22:42 22:42 WBC 10.1 Hgb 13.1 Hct 38.4 Plt Count 186 INR 1.0 APTT 30.8 Sodium 137 Potassium 4.0 Chloride 105 Carbon Dioxide 21 L BUN 15 Creatinine 1.14 Glucose 178 H Calcium 9.4 Magnesium 1.7 Troponin I 0.09 H* 10/21/18 10/21/18 03:21 03:21 WBC 10.4 Hgb 12.5 Hct 37.4 Plt Count 208 INR APTT Sodium 136 Potassium 4.2 Chloride 107 Carbon Dioxide 19 L BUN 14 Creatinine 1.00 Glucose 156 H Calcium 8.6 Magnesium Troponin I
[2018-10-21] MEDS ORDERED: Perflutren Lipid Microsphere 1.3 ML in 0.9 % Sodium Chloride 8.7 ML IVP ONE (11:56)
[2018-10-22 01:37] LABS: Albumin 3.5 g/dL (3.5-5.7); Albumin/Globulin Ratio 1.6 (1.1-2.2); Bilirubin,Direct 0.1 mg/dL (0.0-0.2); Bilirubin,Indirect 0.3 mg/dL (0.0-1.2); Bilirubin,Total 0.4 mg/dL (0.3-1.0); Chol/HDL Ratio 5.7 (0-4.9); Globulin 2.2 g/dL (2.4-3.5); Total Protein 5.7 g/dL (6.4-8.9)
[2018-10-22] MEDS: Aspirin 81 MG TAB.CHEW PO SCH (09:20)
[2018-10-22] MEDS: *HR* Ticagrelor 90 MG TABLET PO SCH ×2 (09:20→20:17)
--- NOTE | 2018-10-22 09:22 | Electrocardiograph Report ---
[address] [place] [address] Test Date: 2018-10-22 Pat Name: Alessia Sanford Department: 110 Room: 2N14 Gender: F Regulatory Affairs Spec: : 1960 Requested By: Holly Charlton Order Number: [id number] Reading MD: Owen Steiner Measurements Intervals [place] Rate: 75 P: 63 GA: 159 QRS: 40 QRSD: 101 T: -66 QT: 431 QTc: 459 Interpretive Statements SINUS RHYTHM PROBABLE INFERIOR MYOCARDIAL INFARCTION, OF INDETERMINATE AGE Electronically Signed On 10-22-2018 9:21:05 EDT by Owen Steiner
--- NOTE | 2018-10-22 09:24 | Cardiology Progress Note ---
Date of Encounter: 10/22/18 Time of Encounter: 11:00 Assessment and Plan (1) STEMI (ST elevation myocardial infarction) Current Visit: Yes Status: Acute 1. STEMI on EKG; S/P PCI to mid RCA ; Troponin 0.09 prior to PCI; troponins elevated s/p PCI 64.13, 70.65 will continue to monitor for changes one more day. Continues to deny chest pain, SOB, flank pain, n/t. 2. Right groin access site no hematoma present with minimal echymosis; good distal pulses. 3. On Brilinta, ASA, Statin, continue. Will add Metoprolol 12.5mg BID. Previous SBP 90s now 120s. Recommend add Lisinorpil if BP continue to trend well. H/H and renal fx remain stable. Laboratory Tests 10/22/18 01:02 AST 84 H ALT 25 Triglycerides 163 H Cholesterol 164 LDL Cholesterol, Calc 102 H VLDL Cholesterol, Calc 33 H HDL Cholesterol 29 L Cholesterol/HDL Ratio 5.7 H 4. Fasting lipids, LFTs completed. Continue current regimen above. 5. Echo reviewed EF 55-60%. LVEF 55-60%. Normal LV chamber size, wall thickness and function. Mild left ventricular diastolic dysfunction. Normal right ventricular structure and function. No significant valvular dysfunction. No evidence of pulmonary hypertension. 6. EKG reviewed S.R. with probable inferior LA intermediate age. 12HR telemetry S.R. ave HR 75. 7. Discussed and reviewed with Dr. Steiner and the patient. Pt. transfered overnight to step down unit. Troponins S/P PCI 64.13, 70.65. Will keep overnight to monitor for acute changes. S Qualifiers: Involved coronary artery: right coronary artery Qualified Code(s): I21.11 - ST elevation (STEMI) myocardial infarction involving right coronary artery Discussion w patient/family: The assessment and plan as outlined above was discussed with the patient and/or family members who expressed understanding and agreement. All questions were answered. Thank you for involving us in the care of your patient. Please call with any questions. Subjective Principal diagnosis: STEMI Interval history: Denies Chest pain, SOB at rest, flank pain or tenderness. Denies N/T lower extremities. Objective Vital Signs, Last 4 Hours Temp Pulse Resp BP Pulse Ox 10/22/18 08:28 98.9 F 77 18 133/73 99 General: Conversant, No Apparent Distress HEENT: Atraumatic, Normocephaly, Mucus Membranes Moist Neck: No JVD, Normal carotid pulses Cardiac: Reg Rate and Rhythm, Normal S1 and S2, No Murmur Lungs: Normal Breath Sounds, No Wheeze, Rales, Rhonchi Neuro: Alert and responsive, No focal deficits noted Abdomen: Soft, Non-Tender Skin: No rashes noted on visualized skin Musculoskeletal: No Chest Wall Tenderness Extremities: No Clubbing, No Cyanosis, No Edema, Normal Pulses Results 10/21/18 03:21 10/21/18 03:21 Lab Results Laboratory Tests 10/21/18 10/21/18 10/22/18 03:21 03:21 01:02 Hgb 12.5 Hct 37.4 BUN 14 Creatinine 1.00 Est GFR (Non-Af Amer) 57 L AST 84 H ALT 25 Laboratory Tests 10/20/18 10/21/18 10/22/18 22:42 12:46 01:02 Troponin I 0.09 H* 64.13 H* 70.65 H* Selected Entries 10/22/18 00:01 10/22/18 04:35 10/22/18 08:28 Blood Pressure 129/64 126/61 133/73 Impressions Echocardiogram 10/21/18 00:39 Impressions: LVEF 55-60%. Normal LV chamber size, wall thickness and function. Mild left ventricular diastolic dysfunction. Normal right ventricular structure and function. No significant valvular dysfunction. No evidence of pulmonary hypertension. Left Ventricular Wall Motion: Rest Echo Findings All wall segments showed normal motion. Active Medications Aspirin (Aspirin) 81 mg PO DAILY SUDHEER Stop: 04/22/19 09:01 Last Admin: 10/22/18 09:20 Dose: 81 mg Documented by: Atorvastatin Calcium (Lipitor) 80 mg PO HS SUDHEER Stop: 04/22/19 21:01 Last Admin: 10/21/18 20:44 Dose: 80 mg Documented by: Ticagrelor (Brilinta) 90 mg PO BID SUDHEER Stop: 04/22/19 09:01 Last Admin: 10/22/18 09:20 Dose: 90 mg Documented by: - Imaging and Cardiology Echo: report reviewed Cardiac cath: pending - EKG Interpretation EKG results cardiology: sinus rhythm Consult Discharge Plan - Plan Referrals: Holly Charlton [Partnered Physician] - (Per the office they will call the patient at home with follow up appointment) Mary Ann Montelongo, SPACE TECHNOLOGIST [Advanced Practice Nurse] - 10/29/18 1:30 pm (Please fill out the new patient packet that will be arriving in the mail and take with you to your appointment. Show up 15 mins. Early. Take with you to your appointment your INS. Cards, Picture ID, and a list of all medications including over the counter meds. If you need to cancel please call [phone] 24 hours prior to your appointment. This office does not give out controlled meds. If you do not receive your new patient packet in the mail please arrive 30 minutes early to your appointment to fill out your paper work.)
--- NOTE | 2018-10-22 15:34 | Electrocardiograph Report ---
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
--- NOTE | 2018-10-22 15:42 | Electrocardiograph Report ---
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
[2018-10-23 07:35] VITALS: BP 145/80
[2018-10-23] MEDS: *HR* Ticagrelor 90 MG TABLET PO SCH (09:11)
[2018-10-23] MEDS: Aspirin 81 MG TAB.CHEW PO SCH (09:11)
[2018-10-23] MEDS ORDERED: *HR* EPINEPHrine 1 MG/10 ML SYRINGE IVP ONE (10:27)
--- NOTE | 2018-10-23 10:27 | Discharge Summary ---
<Jacques Barrientos Mark - Last Filed: 10/23/18 11:13> Date of Encounter: 10/23/18 Time of Encounter: 10:00 - Discharge Diagnosis (1) STEMI (ST elevation myocardial infarction) Priority: Primary Status: Acute Comments: Presented as STEMI peak troponin of 70.65. Qualifiers: Involved coronary artery: right coronary artery Qualified Code(s): I21.11 - ST elevation (STEMI) myocardial infarction involving right coronary artery - Hospital Course Hospital course: 1. Ms. Sanford is a 58 year old female active smoker with no other known PMH, presented with new onset left pectoral type chest pain radiated down her left upper extremity. EKG demonstrated STEMI; S/P PCI to mid RCA ; Troponin 0.09; peak troponin s/p PCI 70.65. 2. Echo reviewed s/p PCI EF 55-60%. LVEF 55-60%. Normal LV chamber size, wall thickness and function. Mild left ventricular diastolic dysfunction. Normal right ventricular structure and function. No significant valvular dysfunction. No evidence of pulmonary hypertension. 3. Right groin access site no hematoma present with minimal echymosis; good distal pulses. Continues to deny chest pain, SOB, flank pain, n/t. Right groin site Pt. education given for s/p procedure and understands. 4. Discharged with prescriptions for Brilinta, Statin, BB, ACEI, Nitro SL. ASA education to take 81mg daily OTC understood. 5. Written/verbal Pt. education given regarding continuance of DAPT for at least 1 year s/p MT and until further recs from Cardiology; Nitro SL instructions given and understood; Brilinta discount card given with instructions. Discussed to remain off work, with work excuse given until f/u appt. Pt. agrees to f/u with [place] [facility] in 5-7 days. 6. Discussed and reviewed with Dr. Win. - Time Spent with Patient Total time spent providing and/or coordinating discharge services: Less than 30 minutes - Discharge Medications Prescriptions: New Ticagrelor [Brilinta] 90 mg PO BID #60 tablet Atorvastatin [Lipitor] 80 mg PO HS #30 tablet Lisinopril 2.5 mg PO DAILY #30 tablet Metoprolol [Lopressor] 12.5 mg PO BID #30 tablet Nitroglycerin 0.4 mg SL Q5MIN #30 tab.subl Home Medications: Atorvastatin [Lipitor] 80 mg PO HS #30 tablet 10/23/18 [Rx] Lisinopril 2.5 mg PO DAILY #30 tablet 10/23/18 [Rx] Metoprolol [Lopressor] 12.5 mg PO BID #30 tablet 10/23/18 [Rx] Nitroglycerin 0.4 mg SL Q5MIN #30 tab.subl 10/23/18 [Rx] Ticagrelor [Brilinta] 90 mg PO BID #60 tablet 10/23/18 [Rx] Allergies/Adverse Reactions: Allergy/AdvReac Type Severity Reaction Status Date / Time No Known Allergies Allergy Verified 10/20/18 22:40 Date of admission: 10/21/18 00:50 Primary care physician: PCP NONE Consults: 10/21/18 00:39 Consult to Cardiac Rehabilitation-Phase1 [CONS] Routine Comment: Reason for Consult: AMI Call Completed: Yes Consult to Nurse Navigator [CONS] Routine Comment: Discharging clinician: Jacques Barrientos Anticipated date of discharge: 10/23/18 Physical Examination Vital Signs, Last 4 Hours Temp Pulse Resp BP 10/23/18 08:55 67 10/23/18 07:30 98.6 F 73 15 145/80 General: Conversant, No Apparent Distress HEENT: Atraumatic, Normocephaly, Mucus Membranes Moist Neck: No JVD, Normal carotid pulses Cardiac: Reg Rate and Rhythm, Normal S1 and S2, No Murmur Lungs: Normal Breath Sounds, No Wheeze, Rales, Rhonchi Neuro: Alert and responsive, No focal deficits noted Abdomen: Soft, Non-Tender Skin: No rashes noted on visualized skin Musculoskeletal: No Chest Wall Tenderness Extremities: No Clubbing, No Cyanosis, No Edema, Normal Pulses - Patient Status Disposition: Home, Self-Care Condition: Good Functional capacity at discharge: independent ambulation Overall status at discharge: patient is progressing back to baseline - Discharge Instructions Instructions: Nitroglycerin (By mouth), Lisinopril (By mouth), Atorvastatin (By mouth), Ticagrelor (By mouth), Chest Pain (DC), Heart Healthy Diet (DC) Follow Up With: Holly Charlton [Partnered Physician] - (Per the office they will call the patient at home with follow up appointment) Mary Ann Montelongo, LASER CUTTER [Advanced Practice Nurse] - 10/29/18 1:30 pm (Please fill out the new patient packet that will be arriving in the mail and take with you to your appointment. Show up 15 mins. Early. Take with you to your appointment your INS. Cards, Picture ID, and a list of all medications including over the counter meds. If you need to cancel please call [phone] 24 hours prior to your appointment. This office does not give out controlled meds. If you do not receive your new patient packet in the mail please arrive 30 minutes early to your appointment to fill out your paper work.) Additional Instructions: RISK FACTORS: STOP SMOKING: If you smoke, STOP. Smoking or tobacco use significantly increases your risk of heart disease because nicotine causes the arteries to narrow or constrict. It also causes fats to stick to the artery. Your chances of having a heart attack are greatly increased if you continue to smoke. For more information, call the education line for smoking cessation 7-183-GIHSBVQ EAT A LOW FAT/CHOLESTEROL/SODIUM DIET: This diet may help reduce your chances of having a heart attack. LIFTING: Avoid lifting anything more than 10 pounds for 5-7 days Prior to straining, laughing, sneezing and/or coughing, apply manual pressure directly over insertion site. ACTIVITY: You may walk or climb stairs as tolerated You can resume sexual activity as tolerated In general, you are encouraged to engage in a minimum of 30 minutes or more of moderate intensity physical activity, such as brisk walking, daily or at least 3-4 times weekly BATHING Do not submerge the site into water (bath tub, hot tub, swimming pool) for 1 week. This can be a source for infection into the blood stream. You may shower after 24 hours SITE CARE: After 24 hours, you may remove the dressing and leave the site open to air. Keep the site clean and dry. Clean gently and pat dry. You can expect bruising and tenderness that gradually resolve within a week or two. Return to work as instructed per your physician Resume driving as instructed per physician Keep all scheduled follow up appointments Resume medications as instructed IMPORTANT: If prescribed a Platelet Aggregation Inhibitor such as, Plavix, Brilinta or Effient: Duration of therapy is minimum one year These medications are often used in combination with Aspirin in prevention of future heart attacks Never discontinue unless consult with your Clinic Coordinator STROKE (CVA) Risk factors for a stroke are: Age, cigarette smoking, diabetes, excessive alcohol consumption, family history, high blood pressure, overweight, physical inactivity, prior stroke, heart attack, diagnosis of carotid artery stenosis or other artery disease. Warning signs: Sudden numbness or weakness of the face, arm or leg; especially on one side of the body, sudden confusion, trouble speaking or understanding, sudden trouble seeing in one or both eyes, sudden trouble walking, dizziness, loss of balance or coordination, sudden severe headache with no cause. Call 911 or go to the Emergency Room. CONGESTIVE HEART FAILURE: If you have been diagnosed with Congestive Heart Failure (CHF) and your symptoms return, make an appointment with your physician Weigh yourself daily. Notify your physician if you have a weight gain of two or more pounds in one day or five or more pounds in one week. If you experience any difficulty breathing, please call 911 BLEEDING: Although the risk of bleeding is minimal, it can happen. If you have any bleeding from the site, apply firm pressure above the puncture site for 10-15 minutes. If the bleeding does not stop, continue manual pressure and call 911 CARDIAC REHABILITATION: If you have had a heart attack or cardiac stents placed, please ask your cow tester if Cardiac Rehabilitation is right for you. Cardiac Rehabilitation is recommended, beneficial to your health and can improve the following: strengthen your heart, improve ejection fraction, weight reduction, decrease cholesterol levels, lower blood pressure, lower blood sugar, improve stamina and enhance self-image. If you have any questions please call [facility] at [phone]. Contact your physician if: You develop a fever greater than 101 degrees Fahrenheit Your site becomes reddened or has any drainage You have an increase in pain or burning at the site or if a large knot forms at the site. If you experience chest pain, shortness of breath, dizziness, or extreme tiredness, stop the activity and rest. Please notify your physicians office if you experience any of these symptoms and they are not relieved by rest please call 911! - Diet and Activity Activity: return to work once cleared by your PCP/specialist Diet: low fat, low cholesterol, low salt diet <Go Win - Last Filed: 10/23/18 11:55> Date of Encounter: 10/23/18 - Hospital Course Hospital course: Ms. Sanford is a 58 year old female - Time Spent with Patient Total time spent providing and/or coordinating discharge services: Date of admission: 10/21/18 00:50 Primary care physician: PCP NONE Consults: 10/21/18 00:39 Consult to Cardiac Rehabilitation-Phase1 [CONS] Routine Comment: Reason for Consult: AMI Call Completed: Yes Consult to Nurse Navigator [CONS] Routine Comment: Physical Examination Vital Signs, Last 4 Hours Pulse 10/23/18 08:55 67 - Attending Attestation Patient ready for discharge. Dual antiplatelet therapy, beta blockers and statins provided. No [place] inhibitor with borderline hypotension. Follow-up arrangements with cardiology be made.
== END 2018-10-23 12:44 | disposition home or self-care (01) | DRG 247 ==
LOC: ICNU 22:12 → EMEROOARM 22:12 → ICNU 23:15 → 2NNU 10-21 16:47
PROVIDERS: ADMIT Internal Medicine Cardiovascular Disease; ATTEND Internal Medicine Cardiovascular Disease

== ENCOUNTER 2018-12-10 07:07 | Observation (INO) ==
[2018-12-10] MEDS: 0.9 % Sodium Chloride 1,000 ML IVC SCH ×2 (08:09→19:45)
[2018-12-10] MEDS ORDERED: *HR* Midazolam HCl 2 MG/2 ML VIAL ONE ×2 (09:26→11:14)
[2018-12-10] MEDS ORDERED: *HR* Heparin 10,000 UNIT/10 ML VIAL ONE (09:26)
[2018-12-10] MEDS ORDERED: *HR* FentaNYL (PF) 100 MCG/2 ML VIAL ONE ×2 (09:26→11:14)
[2018-12-10] MEDS ORDERED: ISOVUE-370 200 ML INFUS..BTL ONE ×2 (09:26→10:57)
[2018-12-10] MEDS ORDERED: Nitroglycerin 1,000 MCG/10 ML VIAL IV ONE (09:26)
[2018-12-10] MEDS ORDERED: 0.9 % Sodium Chloride 1,000 ML ONE (09:26)
[2018-12-10] MEDS ORDERED: Heparin 1,000 UNITS/500 mL 500 ML ONE (09:26)
[2018-12-10] MEDS: *HR* Ticagrelor 90 MG TABLET PO SCH (20:48)
[2018-12-11] MEDS: *HR* Ticagrelor 90 MG TABLET PO SCH (08:23)
[2018-12-11] MEDS ORDERED: Aspirin 81 MG TAB.CHEW PO SCH (09:00)
[2018-12-11 10:50] LABS: Hematocrit 29.1 % (35.3-44.9); Hemoglobin 9.6 g/dL (11.5-15.4)
[2018-12-11 10:59] VITALS: BP 149/75
[2018-12-11 11:07] LABS: Calcium 9.2 mg/dL (8.6-10.3)
== END 2018-12-11 13:36 | disposition home or self-care (01) ==
LOC: INVDIALAB 07:07 → 2ANU 07:07
PROVIDERS: ADMIT Internal Medicine Cardiovascular Disease; ATTEND Internal Medicine Cardiovascular Disease

== ENCOUNTER 2018-12-28 13:06 | Inpatient (IN) ==
[~2018-12-28 13:06] MED LIST: ceFAZolin 1,000 MG, Sodium Chloride IRRigation 1,000 ML IR ONE
[2018-12-28] MEDS ORDERED: Acetaminophen IV 1,000 MG/100 ML INFUS..BTL IVPB ONE (13:37)
[2018-12-28] MEDS ORDERED: Morphine Sulfate 2 MG/ML SYRINGE IVP PRN (13:38)
[2018-12-28] MEDS ORDERED: CeFAZolin Syr 2,000MG/20 ML 2,000 MG/20 ML SYRINGE IVPB ONE (13:50)
[2018-12-28] MEDS ORDERED: Albuterol 2.5 MG/3 ML NEBULIZER IH ONE (13:52)
[2018-12-28] MEDS ORDERED: Ringers Solution, Lactated 1,000 ML IVC SCH (14:00)
[2018-12-28] MEDS ORDERED: Heparin 1,000 UNITS/500 mL 500 ML ONE ×2 (17:04→18:16)
[2018-12-28] MEDS ORDERED: Lidocaine -MPF 4% 5 ML AMPUL ONE (18:01)
[2018-12-28] MEDS ORDERED: *HR* Phenylephrine 10 MG/ML VIAL ONE (18:01)
[2018-12-28] MEDS ORDERED: *HR* Succinylcholine 200 MG/10 ML VIAL IVP ONE (18:01)
[2018-12-28] MEDS ORDERED: Ondansetron 4 MG/2 ML VIAL ONE (18:01)
[2018-12-28] MEDS ORDERED: 0.9 % Sodium Chloride 300 ML ONE (18:01)
[2018-12-28] MEDS ORDERED: *HR* FentaNYL (PF) 100 MCG/2 ML VIAL ONE (18:01)
[2018-12-28] MEDS ORDERED: *HR* Propofol 200 MG/20 ML VIAL IVP ONE (18:01)
[2018-12-28] MEDS ORDERED: *HR* Heparin 5,000 UNIT/ML VIAL ONE ×2 (18:01→20:46)
[2018-12-28] MEDS ORDERED: Lidocaine -MPF 2% 2 ML VIAL ONE (18:01)
[2018-12-28] MEDS ORDERED: Dexamethasone 4 MG/ML VIAL ONE (18:01)
[2018-12-28] MEDS ORDERED: *HR* Rocuronium Bromide 50 MG/5 ML VIAL ONE (18:01)
[2018-12-28] MEDS ORDERED: *HR* Remifentanil 2 MG VIAL IVP ONE (18:01)
[2018-12-28] MEDS ORDERED: Lidocaine 1% 20 ML MDV ONE (18:16)
[2018-12-28] MEDS ORDERED: Protamine Sulfate 50 MG/5 ML VIAL IVP ONE (18:16)
[2018-12-28] MEDS ORDERED: Acetaminophen 325 MG TABLET PO PRN (23:00)
[2018-12-28] MEDS ORDERED: *HR* Labetalol 20 MG/4 ML SYRINGE IVP PRN (23:00)
[2018-12-28] MEDS ORDERED: Naloxone 0.4 MG/ML INJ IVP PRN (23:00)
[2018-12-28] MEDS ORDERED: traMADol 50 MG TABLET PO PRN (23:00)
[2018-12-28] MEDS ORDERED: *HR* HYDROcodone/Acet 5/325 mg TABLET PO PRN (23:00)
[2018-12-28] MEDS ORDERED: Nitroglycerin 0.4 MG TAB.SUBL SL SCH (23:00)
[2018-12-29 05:20] LABS: Basophils % 0.3 %; Hematocrit 22.1 % (35.3-44.9); Hemoglobin 7.3 g/dL (11.5-15.4); Immature Granulocytes % 0.3 % (0-4); Lymphocytes # 0.7 K/mcL (0.6-4.6); Lymphocytes % 9.5 %; Mean Corpuscular Hemoglobin 31.5 pg (28.0-33.3); Mean Corpuscular Volume 95.3 fL (83.0-100.0); Mean Platelet Volume 9.9 fL (9.4-12.4); Monocytes # 0.2 K/mcL (0.0-1.3); Monocytes % 2.7 %; Neutrophils # 6.5 K/mcL (1.6-8.9); Platelet Count 155 K/mcL (140-400); Red Blood Count 2.32 M/mcL (3.82-4.97); Segmented Neutrophils % 87.2 %; White Blood Count 7.4 K/mcL (4.3-11.1)
[2018-12-29 05:38] LABS: Calcium 8.2 mg/dL (8.6-10.3); Potassium 4.5 mEq/L (3.5-5.1)
[2018-12-29] MEDS ORDERED: *HR* Metformin 500 MG TABLET PO SCH (08:00)
[2018-12-29] MEDS ORDERED: *HR* Ticagrelor 90 MG TABLET PO SCH (09:00)
[2018-12-29] MEDS ORDERED: Aspirin Enteric Coated 81 MG Tablet PO SCH (09:00)
[2018-12-29 10:14] VITALS: BP 121/52
[2018-12-29] MEDS ORDERED: Artificial Tears SOLN 15 ML BOTTLE BOTH EYES PRN (11:16)
== END 2018-12-29 16:15 | disposition home or self-care (01) | DRG 39 ==
LOC: SAMDAY 13:06 → 2NNU 23:23
PROVIDERS: ADMIT Surgery Vascular Surgery; ATTEND Surgery Vascular Surgery

== ENCOUNTER 2021-09-14 11:14 | Inpatient (IN) ==
[2021-09-14] MEDS ORDERED: CeFAZolin Syr 2,000MG/20 ML 2,000 MG/20 ML SYRINGE IVPB ONE (11:56)
[2021-09-14] MEDS ORDERED: Ringers Solution, Lactated 1,000 ML IVC SCH (12:00)
[2021-09-14] MEDS ORDERED: *HR* Propofol 200 MG/20 ML VIAL IVP ONE (12:04)
[2021-09-14] MEDS ORDERED: *HR* Phenylephrine 10 MG/ML VIAL ONE (12:04)
[2021-09-14] MEDS ORDERED: *HR* Remifentanil 2 MG VIAL IVP ONE (12:04)
[2021-09-14] MEDS ORDERED: Lidocaine HCL 4 ML Topical Solution (Laryng-O-Jet Kit Sterile Pak) TP ONE ×2 (12:04→12:05)
[2021-09-14] MEDS ORDERED: *HR* Succinylcholine 200 MG/10 ML VIAL IVP ONE (12:04)
[2021-09-14] MEDS ORDERED: *HR* Midazolam HCl 2 MG/2 ML VIAL ONE (12:04)
[2021-09-14] MEDS ORDERED: Ondansetron 4 MG/2 ML VIAL ONE (12:04)
[2021-09-14] MEDS ORDERED: *HR* Rocuronium Bromide 50 MG/5 ML VIAL ONE (12:04)
[2021-09-14] MEDS ORDERED: Lidocaine -MPF 2% 5 ML VIAL ONE (12:04)
[2021-09-14] MEDS ORDERED: *HR* HYDROMORPHONE 2 MG/ML VIAL ONE (12:05)
[2021-09-14] MEDS ORDERED: Heparin 1,000 UNITS/500 mL 500 ML ONE ×2 (12:11→16:34)
[2021-09-14] MEDS ORDERED: Protamine Sulfate 50 MG/5 ML VIAL IVP ONE (12:11)
[2021-09-14] MEDS ORDERED: Ondansetron 4 MG/2 ML VIAL IVP PRN (12:44)
[2021-09-14] MEDS ORDERED: *HR* OxyCODONE Immed Rel 5 MG TABLET PO PRN ×2 (12:44→19:39)
[2021-09-14] MEDS ORDERED: *HR* HYDROmorphone PF 0.5 MG/0.5 ML SYRINGE IVP PRN (12:44)
[2021-09-14] MEDS ORDERED: ceFAZolin 1,000 MG, Sodium Chloride IRRigation 1,000 ML IR ONE (12:45)
[2021-09-14] MEDS ORDERED: *HR* Heparin 5,000 UNIT/ML VIAL ONE (14:50)
[2021-09-14] MEDS ORDERED: *HR* Remifentanil 1 MG VIAL IVP ONE (16:03)
[2021-09-14] MEDS ORDERED: EPHEDrine 50 MG/ML VIAL ONE (16:30)
[2021-09-14] MEDS ORDERED: Sugammadex Sodium 200 MG/2 ML VIAL IV ONE (17:31)
[2021-09-14] MEDS ORDERED: Acetaminophen 325 MG TABLET PO PRN (19:39)
[2021-09-14] MEDS ORDERED: Naloxone 0.4 MG/ML INJ IVP PRN (19:39)
[2021-09-14] MEDS ORDERED: Nitroglycerin 0.4 MG TAB.SUBL SL PRN (19:39)
[2021-09-14] MEDS ORDERED: *HR* HYDROcodone/Acet 5/325 mg TABLET PO PRN (19:39)
[2021-09-14] MEDS ORDERED: Ergocalciferol (VIT D2) 50,000 UNIT (1.25MG) CAP PO SCH (19:39)
[2021-09-14] MEDS ORDERED: *HR* Labetalol 20 MG/4 ML SYRINGE IVP PRN (19:39)
[2021-09-14] MEDS: Metoprolol XL (24 HR) Succ 25 MG TAB.ER.24H PO SCH (22:13)
[2021-09-14] MEDS: CeFAZolin 2 GM/120 ML BAG IVPB SCH (22:19)
[2021-09-15 01:31] LABS: Basophils % 0.1 %; Hematocrit 25.3 % (35.3-44.9); Hemoglobin 8.3 g/dL (11.5-15.4); Immature Granulocytes % 0.4 % (0-4); Lymphocytes # 0.6 K/mcL (0.6-4.6); Lymphocytes % 4.9 %; Mean Corpuscular HGB Conc 32.8 g/dL (31.6-35.5); Mean Corpuscular Hemoglobin 32.4 pg (28.0-33.3); Mean Corpuscular Volume 98.8 fL (83.0-100.0); Monocytes # 0.3 K/mcL (0.0-1.3); Monocytes % 2.7 %; Neutrophils # 11.3 K/mcL (1.6-8.9); Platelet Count 163 K/mcL (140-400); Red Blood Count 2.56 M/mcL (3.82-4.97); Segmented Neutrophils % 91.9 %; White Blood Count 12.3 K/mcL (4.3-11.1)
[2021-09-15 01:50] LABS: Calcium 8.1 mg/dL (8.6-10.3); Potassium 4.8 mEq/L (3.5-5.1)
[2021-09-15] MEDS: CeFAZolin 2 GM/120 ML BAG IVPB SCH ×2 (06:06→14:09)
[2021-09-15] MEDS: Ondansetron 4 MG/2 ML VIAL IVP PRN ×2 (06:07→14:10)
[2021-09-15] MEDS: Metoprolol XL (24 HR) Succ 25 MG TAB.ER.24H PO SCH (08:43)
[2021-09-15] MEDS ORDERED: Ascorbic Acid 500 MG TABLET PO SCH (09:00)
[2021-09-15] MEDS ORDERED: Aspirin Enteric Coated 81 MG Tablet PO SCH (09:00)
[2021-09-15] MEDS ORDERED: lisinopriL 5 MG TABLET PO SCH (09:00)
[2021-09-15] MEDS ORDERED: *HR* Metformin 500 MG TABLET PO SCH (09:00)
[2021-09-15] MEDS ORDERED: *HR* Glimepiride 2 MG TABLET PO SCH (09:00)
[2021-09-15 15:51] VITALS: TEMP 97.8
[2021-09-15 17:21] VITALS: BP 162/58; PULSE 75; O2SAT 100
== END 2021-09-15 18:10 | disposition home or self-care (01) | DRG 272 ==
LOC: SAMDAY 11:14 → 2NNU 19:36
PROVIDERS: ADMIT Surgery Vascular Surgery; ATTEND Surgery Vascular Surgery